=== PATIENT | male | born 1990 | race Two or more races ===

== ENCOUNTER 2018-05-02 15:56 | Emergency (ER) | payer SELFPAY ==
[~2018-05-02] VITALS: Ht 182.9 cm; Wt 87.5 kg
[2018-05-02 16:14] VITALS: BP 117/78
[2018-05-02] MEDS ORDERED: IBUPROFEN 800 MG TAB PO ONE (16:45)
== END 2018-05-02 17:34 | disposition home or self-care (01) ==
LOC: ER 16:01
DX: S39.012A Strain of muscle, fascia and tendon of lower back, initial encounter (principal); S16.1XXA Strain of muscle, fascia and tendon at neck level, initial encounter; V43.52XA Car driver injured in collision with other type car in traffic accident, initial encounter; Y93.89 Activity, other specified; Y99.8 Other external cause status; Y92.410 Unspecified street and highway as the place of occurrence of the external cause
CPT/HCPCS: 72100